=== PATIENT | female | born 1960 | race American Indian/Alaskan Native ===

== ENCOUNTER 2016-10-24 12:20 | Emergency (ER) | payer MEDICAID ==
[2016-10-24 13:26] LABS: Hemoglobin 12.3 gm/dl (10.1-14.3); Mean Corpuscular HGB Conc 33 % (30-34); Mean Corpuscular Hemoglobin 29 pg (28-32); Mean Corpuscular Volume 87 fl (79-97); Platelet Count 206 K/mm3 (140-440); Red Blood Count 4.24 M/mm3 (3.65-5.03); Red Cell Distribution Width 13.5 % (13.2-15.2); White Blood Count 8.9 K/mm3 (4.5-11.0)
--- NOTE | 2016-10-24 13:32 | XRay Report ---
ROUTINE CHEST, TWO VIEWS: HISTORY: Shortness of breath. Mild cardiomegaly and pulmonary venous congestion are identified. A 2-lead pacemaker device is in position. The lungs are clear. No evidence for CHF, pneumonia or pneumothorax. IMPRESSION: Mild cardiomegaly and pulmonary venous congestion but no CHF.
[2016-10-24 13:33] LABS: Anion Gap 13 mmol/L; BUN/Creatinine Ratio 20.76; Blood Urea Nitrogen 27 mg/dL (7-17); Calcium 9.4 mg/dL (8.4-10.2); Carbon Dioxide 32 mmol/L (22-30); Chloride 98.7 mmol/L (98-107); Glucose 71 mg/dL (65-100); Potassium 3.8 mmol/L (3.6-5.0); Sodium 140 mmol/L (137-145)
[2016-10-24 14:23] LABS: Basophils % (Manual) 0 % (0.0-1.8); Blastocytes % (Manual) 0 %; Toxic Vacuolation Few
[2016-10-24 14:24] LABS: Anisocytosis 1+; Diff Status Complete; Large Platelets Few; Platelet Clumps Rare; Platelet Estimate Cons
[2016-10-24 14:25] LABS: Polychromasia Rare; Tear Drop Cells Rare
[2016-10-24] MEDS ORDERED: DUONEB 0.5 MG-3 MG/3 ML SOLN IH ONE (17:46)
[2016-10-24] MEDS ORDERED: ZITHROMAX PO ONE (18:21)
[2016-10-24] MEDS ORDERED: TESSALON PERLES PO ONE (18:21)
[2016-10-24] MEDS ORDERED: MAGNESIUM SULFATE 2GM/50ML 2 GM/50 ML BAG IV ONE (18:21)
[2016-10-24] MEDS ORDERED: PROVENTIL IH ONE (18:21)
[2016-10-24] MEDS ORDERED: ATROVENT IH ONE (18:21)
[2016-10-24] MEDS ORDERED: K-DUR PO ONE (20:23)
[2016-10-24] MEDS ORDERED: LASIX IV ONE (20:23)
--- NOTE | 2016-10-24 20:24 | Emergency Department Report ---
ED Shortness of Breath HPI - General Chief Complaint: Dyspnea/Respdistress Stated Complaint: COUGH/WHEEZING/GUILLAUME Time Seen by Provider: 10/24/16 18:15 Source: patient Mode of arrival: Ambulatory Limitations: No Limitations - History of Present Illness Initial Comments: 56-year-old female with a past medical history CHF, diabetes, hypertension, asthma, and definitive placement presents to the hospital with complaints of cough, wheezing, shortness breath since last week. He should have a cough productive of yellow sputum. No reports of fever, chest pain, or leg edema. Patient was put on antibiotics last month by her PMD for similar symptoms. Patient had improvement but then symptoms worsen again last week. - Related Data Home Medications Medication Instructions Recorded Confirmed Last Taken Albuterol Sulfate [Albuterol 0.63% 0.63 mg IH TID PRN 08/25/13 10/24/16 10/24/16 NEBS] Aspirin [Aspirin BABY CHEW TAB] 81 mg PO QDAY 08/25/13 10/24/16 10/24/16 Carvedilol [Coreg] 12.5 mg PO BID 08/25/13 10/24/16 10/24/16 Gabapentin [Gralise] 300 mg PO BID 08/25/13 10/24/16 02/06/15 Insulin Glargine,Hum.rec.anlog 37 unit SQ QHS 08/25/13 10/24/16 02/06/15 [Lantus Solostar] Levothyroxine [Synthroid] 75 mcg PO QAM 08/25/13 10/24/16 02/06/15 Insulin Regular, Human Inj 12 units SC AC 04/17/14 02/07/15 02/06/15 [NovoLIN R Inj] Amiodarone [Cordarone 200 MG TAB] 200 mg PO DAILY 11/07/14 10/24/16 10/24/16 Valsartan [Diovan] 40 mg PO BID 10/24/16 10/24/16 10/24/16 Previous Rx's Medication Instructions Recorded Last Taken Type Spironolactone [Aldactone] 25 mg PO QDAY #30 tablet 04/20/14 02/06/15 Rx ALBUTEROL Inhaler [ProAir HFA 2 puff IH QID PRN #1 inhalation 10/24/16 Unknown Rx Inhaler] ALBUTEROL NEB's [Proventil 0.083% 2.5 mg IH TID PRN #1 box 10/24/16 Unknown Rx NEBS] Azithromycin [Zithromax Z-LUCIANA] 1 dose PO DAILY 5 Days 10/24/16 Unknown Rx Benzonatate [Tessalon Perles] 100 mg PO Q8HR #30 capsule 10/24/16 Unknown Rx Prednisone [predniSONE 10 mg 10 mg PO .TAPER #1 tab.ds.pk 10/24/16 Unknown Rx (6-Day Pack, 21 Tabs)] Allergies Allergy/AdvReac Type Severity Reaction Status Date / Time No Known Allergies Allergy Unverified 08/25/13 19:09 ED Review of Systems ROS: Stated complaint: COUGH/WHEEZING/GUILLAUME Other details as noted in HPI Comment: All other systems reviewed and negative Other: Constitutional: No fevers chills Eyes: No eye pain visual changes ENT: No ear pain or throat pain Neck: Denies pain Respiratory: as per hpi Cardiovascular: Denies chest pain, palpitations, syncope GI: Denies abdominal pain, nausea, vomiting, diarrhea : Denies dysuria Musculoskeletal: Denies back pain, joint swelling Skin: Denies rash, lesions, erythema Neurologic: Denies headache, numbness, weakness Psychiatric: Denies suicidal ideation, hallucinations ED Past Medical Hx - Past Medical History Hx Hypertension: Yes Hx Congestive Heart Failure: Yes Hx Diabetes: Yes Hx Liver Disease: No Hx Renal Disease: Yes (no dialysis) Hx Seizures: No Hx Asthma: Yes (intermittent, trigger by seasons.) Hx COPD: No Hx HIV: No Additional medical history: hypothyroid osteoporosis - Surgical History Hx Pacemaker: Yes (PACEMAKER BiV) Hx Internal Defibrillator: Yes (DEFIBRILLATOR, no defibs since amiodarone load) Additional Surgical History: TONSILLECTOMY. TUBAL LIGATION. LEFT ANKLE - Social History Smoking Status: Never Smoker Substance Use Type: None - Medications Home Medications: Home Medications Medication Instructions Recorded Confirmed Last Taken Type Albuterol Sulfate [Albuterol 0.63% 0.63 mg IH TID PRN 08/25/13 10/24/16 History NEBS] Aspirin [Aspirin BABY CHEW TAB] 81 mg PO QDAY 08/25/13 10/24/16 10/24/16 History Carvedilol [Coreg] 12.5 mg PO BID 0210/24/16 10/24/16 History Gabapentin [Gralise] 300 mg PO BID 08/25/13 10/24/16 02/06/15 History Insulin Glargine,Hum.rec.anlog 37 unit SQ QHS 08/25/13 10/24/16 02/06/15 History [Lantus Solostar] Levothyroxine [Synthroid] 75 mcg PO QAM 08/25/13 10/24/16 02/06/15 History Insulin Regular, Human Inj 12 units SC AC 04/17/14 02/07/15 02/06/15 History [NovoLIN R Inj] Spironolactone [Aldactone] 25 mg PO QDAY #30 tablet 04/20/14 10/24/16 02/06/15 Rx Amiodarone [Cordarone 200 MG TAB] 200 mg PO DAILY 11/07/14 10/24/16 10/24/16 History ALBUTEROL Inhaler [ProAir HFA 2 puff IH QID PRN #1 inhalation 10/24/16 Unknown Rx Inhaler] ALBUTEROL NEB's [Proventil 0.083% 2.5 mg IH TID PRN #1 box 10/24/16 Unknown Rx NEBS] Azithromycin [Zithromax Z-LUCIANA] 1 dose PO DAILY 5 Days 10/24/16 Unknown Rx Benzonatate [Tessalon Perles] 100 mg PO Q8HR #30 capsule 10/24/16 Unknown Rx Prednisone [predniSONE 10 mg 10 mg PO .TAPER #1 tab.ds.pk 10/24/16 Unknown Rx (6-Day Pack, 21 Tabs)] Valsartan [Diovan] 40 mg PO BID 10/24/16 10/24/16 10/24/16 History ED Physical Exam - General Limitations: No Limitations - Other Other exam information: General: No limitations, patient is alert in no acute distress Head exam: Atraumatic, normocephalic Eyes exam: Normal appearance ENT: Moist mucous membrane, normal oropharynx Neck exam: Normal inspection, full range of motion, no meningismus nontender Respiratory exam: Bilateral expiratory wheeze with coarse breath sounds and crackles Cardiovascular: Normal rate and rhythm, normal heart sounds Abdomen: Soft, nondistended, and nontender, with normal bowel sounds, no rebound, or guarding Extremity: Full range of motion normal inspection no deformity Back: Normal Inspection, full range of motion, no tenderness Neurologic: Alert, oriented x3, cranial nerves intact, no motor or sensory deficit Psychiatric: normal affect, normal mood Skin: Warm, dry, intact ED Course Vital Signs 10/24/16 10/24/16 10/24/16 12:49 17:31 17:41 Temperature 98.8 F Pulse Rate 63 65 Pulse Rate [ Anterior Bilateral Throughout] Respiratory 21 20 13 Rate Respiratory Rate [Anterior Bilateral Throughout] Blood Pressure 134/86 Blood Pressure [Left] O2 Sat by Pulse 96 98 97 Oximetry 10/24/16 10/24/16 10/24/16 18:28 19:14 20:00 Temperature 98 F Pulse Rate 64 Pulse Rate [ 66 69 Anterior Bilateral Throughout] Respiratory 20 Rate Respiratory 22 20 Rate [Anterior Bilateral Throughout] Blood Pressure Blood Pressure 144/77 [Left] O2 Sat by Pulse 100 Oximetry - Reevaluation(s) Reevaluation #1: 10/24/16 21:03 Patient treated in the ED with albuterol, Solu-Medrol, Atrovent, Tessalon Perles , and azithromycin. Patient reports improvement in symptoms. Given a walk test and tolerated exertion. Patient states she feels well enough to go home. ED Medical Decision Making - Lab Data Result diagrams: 10/24/16 13:01 10/24/16 13:01 Lab Results 10/24/16 10/24/16 Range/Units 13:01 13:01 WBC 8.9 (4.5-11.0) K/mm3 RBC 4.24 (3.65-5.03) M/mm3 Hgb 12.3 (10.1-14.3) gm/dl Hct 37.0 (30.3-42.9) % MCV 87 (79-97) fl MCH 29 (28-32) pg MCHC 33 (30-34) % RDW 13.5 (13.2-15.2) % Plt Count 206 (140-440) K/mm3 Add Manual Diff Complete Total Counted 100 Seg Neuts % (Manual) 60.0 (40.0-70.0) % Band Neutrophils % 0 % Lymphocytes % (Manual) 29.0 (13.4-35.0) % Reactive Lymphs % (Man) 4.0 % Monocytes % (Manual) 6.0 (0.0-7.3) % Eosinophils % (Manual) 1.0 (0.0-4.3) % Basophils % (Manual) 0 (0.0-1.8) % Metamyelocytes % 0 % Myelocytes % 0 % Promyelocytes % 0 % Blast Cells % 0 % Nucleated RBC % Not Reportable Seg Neutrophils # Man 5.3 (1.8-7.7) K/mm3 Band Neutrophils # 0.0 K/mm3 Lymphocytes # (Manual) 2.6 (1.2-5.4) K/mm3 Abs React Lymphs (Man) 0.4 K/mm3 Monocytes # (Manual) 0.5 (0.0-0.8) K/mm3 Eosinophils # (Manual) 0.1 (0.0-0.4) K/mm3 Basophils # (Manual) 0.0 (0.0-0.1) K/mm3 Metamyelocytes # 0.0 K/mm3 Myelocytes # 0.0 K/mm3 Promyelocytes # 0.0 K/mm3 Blast Cells # 0.0 K/mm3 WBC Morphology Not Reportable Hypersegmented Neuts Not Reportable Hyposegmented Neuts Not Reportable Hypogranular Neuts Not Reportable Smudge Cells Not Reportable Toxic Granulation Not Reportable Toxic Vacuolation Few Dohle Bodies Not Reportable Pelger-Huet Anomaly Not Reportable Isabela Rods Not Reportable Platelet Estimate Cons Clumped Platelets Rare Plt Clumps, EDTA Not Reportable Large Platelets Few Giant Platelets Not Reportable Platelet Satelliting Not Reportable Plt Morphology Comment Not Reportable RBC Morphology Not Reportable Dimorphic RBCs Not Reportable Polychromasia Rare Hypochromasia Not Reportable Poikilocytosis Not Reportable Anisocytosis 1+ Microcytosis Not Reportable Macrocytosis Not Reportable Spherocytes Not Reportable Pappenheimer Bodies Not Reportable Sickle Cells Not Reportable Target Cells Not Reportable Tear Drop Cells Rare Ovalocytes Not Reportable Helmet Cells Not Reportable Mcnamara-[place] Bodies Not Reportable Opp Rings Not Reportable Anjelica Cells Not Reportable Bite Cells Not Reportable Crenated Cell Not Reportable Elliptocytes Not Reportable Acanthocytes (Spur) Not Reportable Rouleaux Not Reportable Hemoglobin C Crystals Not Reportable Schistocytes Not Reportable Malaria parasites Not Reportable Levi Bodies Not Reportable Hem Pathologist Commnt No Sodium 140 (137-145) mmol/L Potassium 3.8 (3.6-5.0) mmol/L Chloride 98.7 (98-107) mmol/L Carbon Dioxide 32 H (22-30) mmol/L Anion Gap 13 mmol/L BUN 27 H (7-17) mg/dL Creatinine 1.3 H (0.7-1.2) mg/dL Estimated GFR 51 ml/min BUN/Creatinine Ratio 20.76 % Glucose 71 (65-100) mg/dL Calcium 9.4 (8.4-10.2) mg/dL Troponin T < 0.010 (0.00-0.029) ng/mL - EKG Data -: EKG Interpreted by Me (ventricular paced rhythm rate 58) - EKG Data When compared to previous EKG there are: no significant change - Radiology Data Radiology results: report reviewed (chest x-ray: Pulmonary basilar condition without CHF) - Medical Decision Making Patient had a walk test in the ED and tolerated it without difficulty and and says she feels well enough to go home. Dose of Lasix and potassium given prior to discharge him and crackles a history of CHF. Wheezing and cough appeared to be the predominant symptoms. She'll be treated with antibiotics, steroids, and aunts. - Differential Diagnosis pneumonia, bronchitis, CHF, asthma Critical Care Time: No Critical care attestation.: If time is entered above; I have spent that time in minutes in the direct care of this critically ill patient, excluding procedure time. ED Disposition Clinical Impression: Non-ischemic cardiomyopathy, Acute bronchitis, CHF (congestive heart failure), ICD (implantable cardioverter-defibrillator) discharge Disposition: DISCHARGED TO HOME OR SELFCARE Is pt being admited?: No Does the pt Need Aspirin: No Condition: Stable Instructions: Acute Bronchitis (ED) Additional Instructions: Take the medication as prescribed. Return if symptoms worsen. Continue to monitor his sugars very closely while taking the prednisone. Prednisone may cause a temporary increase in your blood sugar level Prescriptions: ALBUTEROL Inhaler [ProAir HFA Inhaler] 2 puff IH QID PRN #1 inhalation PRN Reason: Shortness Of Breath ALBUTEROL NEB's [Proventil 0.083% NEBS] 2.5 mg IH TID PRN #1 box PRN Reason: Wheezing Azithromycin [Zithromax Z-LUCIANA] 1 dose PO DAILY 5 Days Benzonatate [Tessalon Perles] 100 mg PO Q8HR #30 capsule Prednisone [predniSONE 10 mg (6-Day Pack, 21 Tabs)] 10 mg PO .TAPER #1 tab.ds.pk Referrals: TANYA MCALLISTER MD [Primary Care Provider] - 3-5 Days ROLAND KYLE MD [Staff Physician] - 3-5 Days (Lung specialist ) Time of Disposition: 21:06
[2016-10-24 22:23] VITALS: BP 134/78
== END 2016-10-24 21:30 | disposition home or self-care (01) ==
LOC: ED 12:20
DX: I50.9 Heart failure, unspecified (principal); J20.9 Acute bronchitis, unspecified; I25.5 Ischemic cardiomyopathy; E11.9 Type 2 diabetes mellitus without complications; I12.0 Hypertensive chronic kidney disease with stage 5 chronic kidney disease or end stage renal disease; E03.8 Other specified hypothyroidism; N18.6 End stage renal disease; J45.909 Unspecified asthma, uncomplicated; Z98.890 Other specified postprocedural states; Z99.2 Dependence on renal dialysis; Z95.0 Presence of cardiac pacemaker; Z98.51 Tubal ligation status; Z90.89 Acquired absence of other organs
CPT/HCPCS: 36415; 71020; 80048; 84484; 85007; 85025; 93005; 93010; 94640; 96365; 96375; 99284; J1940; J2930; J3475

== ENCOUNTER 2019-05-19 14:17 | Emergency (ER) | payer MEDICAID ==
[2019-05-19 14:55] VITALS: BP 119/60
--- NOTE | 2019-05-19 14:56 | Event Note ---
ED Screening Note Date of service: 05/19/19 Time: 14:55 ED Screening Note: Pt complains of left ankle pain after fall x Friday hx of left ankle surgery due to break many years ago This initial assessment/diagnostic orders/clinical plan/treatment(s) is/are subject to change based on patients health status, clinical progression and re- assessment by fellow clinical providers in the ED. Further treatment and workup at subsequent clinical providers discretion. Patient/guardian urged not to elope from the ED as their condition may be serious if not clinically assessed and managed. Initial orders include: xr
--- NOTE | 2019-05-19 15:34 | XRay Report ---
LEFT ANKLE 3 VIEWS INDICATION / CLINICAL INFORMATION: Fall with left ankle pain and swelling. History of old injury. COMPARISON: None available. FINDINGS: BONES / JOINT(S): There is a single metallic screw transfixing the medial malleolus. There is old hea led fracture deformity of the distal fibular shaft. There are moderately advanced degenerative change s involving the tibiotalar joint. I see no evidence of acute fracture or dislocation. Incidental note is made of a tiny plantar calcaneal spur. SOFT TISSUES: There is moderate generalized soft tissue swelling. ADDITIONAL FINDINGS: None. Signer Name: Amor Medina MD Signed: 05/19/2019 3:30 PM Workstation Name: [id number]
[2019-05-19] MEDS ORDERED: HYDROcodone/ACETAMINOPHEN 10-325MG TAB PO ONE (17:55)
--- NOTE | 2019-05-19 18:19 | Emergency Department Report ---
ED Lower Extremity HPI - General Chief Complaint: Fall Stated Complaint: FALL Time Seen by Provider: 05/19/19 14:55 Source: patient Mode of arrival: Wheelchair Limitations: No Limitations - History of Present Illness Initial Comments: This is a 59-year-old female nontoxic, well nourished in appearance, no acute signs of distress presents to the ED with c/o of left ankle pain 3 days s/p fall. Patient stated that she tripped while walking down the stairs. Patient denies any trauma. Deneis any neck, back, or head injuries or pains. Patient denies any numbness, tingling, fever, chills, nausea, vomiting, chest pain, shortness of breath, headache, stiff neck. Patient denies any joint swelling or joint redness. Patient denies decreased range of motion. Patient stated has decreased gait due to pain. Patient denies any allergies. MD Complaint: ankle injury Injury: Ankle: Left Place: street/outdoors Severity: mild Severity scale (0 -10): 8 Improves With: immobilization Worsens With: weight bearing, movement, palpation Context: fall Associated Symptoms: swelling, able to partially bear weight, ambulatory. denies: snap/pop sensation, numbness, tingling, unable to bear weight - Related Data Home Medications Medication Instructions Recorded Confirmed Last Taken Albuterol Sulfate [Albuterol 0.63% 0.63 mg IH TID PRN 08/25/13 10/24/16 10/24/16 NEBS] Aspirin [Aspirin BABY CHEW TAB] 81 mg PO QDAY 08/25/13 10/24/16 10/24/16 Carvedilol [Coreg] 12.5 mg PO BID 08/25/13 10/24/16 10/24/16 Gabapentin [Gralise] 300 mg PO BID 08/25/13 10/24/16 02/06/15 Insulin Glargine,Hum.rec.anlog 37 unit SQ QHS 08/25/13 10/24/16 02/06/15 [Lantus Solostar] Levothyroxine [Synthroid] 75 mcg PO QAM 08/25/13 10/24/16 02/06/15 Insulin Regular, Human Inj 12 units SC AC 04/17/14 02/07/15 02/06/15 [NovoLIN R Inj] Amiodarone [Cordarone 200 MG TAB] 200 mg PO DAILY 11/07/14 10/24/16 10/24/16 Valsartan [Diovan] 40 mg PO BID 10/24/16 10/24/16 10/24/16 Previous Rx's Medication Instructions Recorded Last Taken Type Spironolactone [Aldactone] 25 mg PO QDAY #30 tablet 04/20/14 02/06/15 Rx ALBUTEROL Inhaler (OR & NICU) 2 puff IH QID PRN #1 inhalation 10/24/16 Unknown Rx [ProAir HFA Inhaler] ALBUTEROL NEB's [Proventil 0.083% 2.5 mg IH TID PRN #1 box 10/24/16 Unknown Rx NEBS] Azithromycin [Zithromax Z-LUCIANA] 1 dose PO DAILY 5 Days tab 10/24/16 Unknown Rx Benzonatate [Tessalon Perles] 100 mg PO Q8HR #30 capsule 10/24/16 Unknown Rx Prednisone [predniSONE 10 mg 10 mg PO .TAPER #1 tab.ds.pk 10/24/16 Unknown Rx (6-Day Pack, 21 Tabs)] Ibuprofen [Motrin] 600 mg PO Q8H PRN #12 tablet 05/19/19 Unknown Rx Allergies Allergy/AdvReac Type Severity Reaction Status Date / Time No Known Allergies Allergy Unverified 08/25/13 19:09 ED Review of Systems ROS: Stated complaint: FALL Other details as noted in HPI Constitutional: denies: chills, fever Eyes: denies: eye pain, eye discharge, vision change ENT: denies: ear pain, throat pain Respiratory: denies: cough, shortness of breath, wheezing Cardiovascular: denies: chest pain, palpitations Endocrine: no symptoms reported Gastrointestinal: denies: abdominal pain, nausea, diarrhea Genitourinary: denies: urgency, dysuria, discharge Musculoskeletal: denies: back pain, joint swelling, arthralgia Skin: denies: rash, lesions Neurological: denies: headache, weakness, paresthesias Psychiatric: denies: anxiety, depression Hematological/Lymphatic: denies: easy bleeding, easy bruising ED Past Medical Hx - Past Medical History Previous Medical History?: Yes Hx Hypertension: Yes Hx Congestive Heart Failure: Yes Hx Diabetes: Yes Hx Liver Disease: No Hx Renal Disease: Yes (no dialysis) Hx Seizures: No Hx Asthma: Yes (intermittent, trigger by seasons.) Hx COPD: No Hx HIV: No Additional medical history: hypothyroid osteoporosis - Surgical History Past Surgical History?: Yes Hx Pacemaker: Yes (PACEMAKER BiV) Hx Internal Defibrillator: Yes (DEFIBRILLATOR, no defibs since amiodarone load) Additional Surgical History: TONSILLECTOMY. TUBAL LIGATION. LEFT ANKLE - Social History Smoking Status: Never Smoker - Medications Home Medications: Home Medications Medication Instructions Recorded Confirmed Last Taken Type Albuterol Sulfate [Albuterol 0.63% 0.63 mg IH TID PRN 08/25/13 10/24/16 10/24/16 History NEBS] Aspirin [Aspirin BABY CHEW TAB] 81 mg PO QDAY 08/25/13 10/24/16 10/24/16 History Carvedilol [Coreg] 12.5 mg PO BID 08/25/13 10/24/16 10/24/16 History Gabapentin [Gralise] 300 mg PO BID 08/25/13 10/24/16 02/06/15 History Insulin Glargine,Hum.rec.anlog 37 unit SQ QHS 08/25/13 10/24/16 02/06/15 History [Lantus Solostar] Levothyroxine [Synthroid] 75 mcg PO QAM 08/25/13 10/24/16 02/06/15 History Insulin Regular, Human Inj 12 units SC AC 04/17/14 02/07/15 02/06/15 History [NovoLIN R Inj] Spironolactone [Aldactone] 25 mg PO QDAY #30 tablet 04/20/14 10/24/16 02/06/15 Rx Amiodarone [Cordarone 200 MG TAB] 200 mg PO DAILY 11/07/14 10/24/16 10/24/16 History ALBUTEROL Inhaler (OR & NICU) 2 puff IH QID PRN #1 inhalation 10/24/16 Unknown Rx [ProAir HFA Inhaler] ALBUTEROL NEB's [Proventil 0.083% 2.5 mg IH TID PRN #1 box 10/24/16 Unknown Rx NEBS] Azithromycin [Zithromax Z-LUCIANA] 1 dose PO DAILY 5 Days tab 10/24/16 Unknown Rx Benzonatate [Tessalon Perles] 100 mg PO Q8HR #30 capsule 10/24/16 Unknown Rx Prednisone [predniSONE 10 mg 10 mg PO .TAPER #1 tab.ds.pk 10/24/16 Unknown Rx (6-Day Pack, 21 Tabs)] Valsartan [Diovan] 40 mg PO BID 10/24/16 10/24/16 10/24/16 History Ibuprofen [Motrin] 600 mg PO Q8H PRN #12 tablet 05/19/19 Unknown Rx ED Physical Exam - General Limitations: No Limitations General appearance: alert, in no apparent distress - Head Head exam: Present: atraumatic, normocephalic - Neck Neck exam: Present: normal inspection, full ROM. Absent: tenderness, meningismus, lymphadenopathy - Extremities Exam Extremities exam: Present: normal inspection, full ROM, tenderness, normal capillary refill. Absent: joint swelling, calf tenderness - Expanded Lower Extremity Exam Left Hip exam: Present: normal inspection, full ROM. Absent: tenderness, swelling Upper Leg exam: Present: normal inspection, full ROM. Absent: tenderness, swelling Knee exam: Present: normal inspection, full ROM. Absent: tenderness, swelling Lower Leg exam: Present: normal inspection, full ROM. Absent: tenderness, swelling Ankle exam: Present: normal inspection, full ROM, tenderness, swelling, ecchymosis. Absent: abrasion, laceration, deformity, crepidus, dislocation, erythema, anterior draw sign Foot/Toe exam: Present: normal inspection, full ROM. Absent: tenderness, swelling Neuro vascular tendon exam: Present: no vascular compromise Gait: Positive: observed and limited by pain - Back Exam Back exam: Present: normal inspection, full ROM. Absent: tenderness, CVA tenderness (R), CVA tenderness (L), muscle spasm, paraspinal tenderness, vertebral tenderness, rash noted - Neurological Exam Neurological exam: Present: alert, oriented X3 - Psychiatric Psychiatric exam: Present: normal affect, normal mood - Skin Skin exam: Present: warm, dry, intact, normal color. Absent: rash ED Course Vital Signs 05/19/19 14:22 Temperature 98.7 F Pulse Rate 74 Respiratory 16 Rate Blood Pressure 119/60 O2 Sat by Pulse 95 Oximetry - Reevaluation(s) Reevaluation #1: 05/19/19 18:09 Patient is speaking in full sentences with no signs of distress noted. ED Lower Extremity MDM - Medical Decision Making This is a 59-year-old female that presents with left ankle sprain. Patient is stable and was examined by me. I referred patient to an orthopedic doctor for further evaluation for possible MRI. X-ray has been obtained and dictated by the radiologist. Patient is notified of the x-ray report with noted by the patient. Patient does have normal gait with no tenderness and no joint swelling. No ecchymosis. no joint redness or swelling. Not warm to touch. No signs of cellulites present. Patient received a ankle stirrup and crutches and was educated by RN how to use crutches. Patient was instructed to RICE therapy. Patient received Camby for pain and stated that her will drive her home after discharge due to possible drowsiness. Patient is discharged with Motrin. At time of discharge, the patient does not seem toxic or ill in appearance. No acute signs of distress noted. Patient agrees to discharge treatment plan of care. No further questions noted by the patient. Critical care attestation.: If time is entered above; I have spent that time in minutes in the direct care of this critically ill patient, excluding procedure time. ED Disposition Clinical Impression: Left ankle sprain Qualifiers: Encounter type: initial encounter Involved ligament of ankle: unspecified ligament Qualified Code(s): S93.402A - Sprain of unspecified ligament of left ankle, initial encounter Disposition: - TO HOME OR SELFCARE Is pt being admited?: No Does the pt Need Aspirin: No Condition: Stable Instructions: Ankle Sprain (ED), Ankle Stirrup Splint (ED), Crutch Instructions (ED), RICE Therapy (ED) Additional Instructions: Follow-up with a orthopedic doctor in 3-5 days or if symptoms worsen and continue return to emergency room as soon as possible. Prescriptions: Ibuprofen [Motrin] 600 mg PO Q8H PRN #12 tablet PRN Reason: Pain Referrals: KACI DOWNING MD [Referring] - 3-5 Days JOSÉ MIGUEL BRUCE MD [Staff Physician] - 3-[address] [facility] [Outside] - 3-5 Days
== END 2019-05-19 18:43 | disposition home or self-care (01) ==
LOC: ED 14:17
DX: S93.402A Sprain of unspecified ligament of left ankle, initial encounter (principal); I11.0 Hypertensive heart disease with heart failure; I50.9 Heart failure, unspecified; E11.9 Type 2 diabetes mellitus without complications; J45.909 Unspecified asthma, uncomplicated; Z95.810 Presence of automatic (implantable) cardiac defibrillator; Z90.89 Acquired absence of other organs; Z98.51 Tubal ligation status; Z79.899 Other long term (current) drug therapy; Z98.890 Other specified postprocedural states; W01.0XXA Fall on same level from slipping, tripping and stumbling without subsequent striking against object, initial encounter; Y93.01 Activity, walking, marching and hiking; Y92.89 Other specified places as the place of occurrence of the external cause; Y99.8 Other external cause status

== ENCOUNTER 2019-06-06 11:00 | Outpatient (CLI) | payer MEDICAID | END 2019-06-06 11:01 | disposition home or self-care (01) | LOC: SLR 11:00 | PROVIDERS: ATTEND Specialist | DX: G47.30 Sleep apnea, unspecified (principal); R06.83 Snoring | CPT/HCPCS: 95810 ==

== ENCOUNTER 2019-06-14 11:00 | Outpatient (CLI) | payer MEDICAID | END 2019-06-14 11:01 | disposition home or self-care (01) | LOC: SLR 11:00 | PROVIDERS: ATTEND Internal Medicine Critical Care Medicine | DX: G47.33 Obstructive sleep apnea (adult) (pediatric) (principal); I11.0 Hypertensive heart disease with heart failure; I50.9 Heart failure, unspecified | CPT/HCPCS: 95811 ==